=== PATIENT | female | born 1980 | race African-American/Black ===

== ENCOUNTER 2018-07-27 22:18 | Emergency (ER) | payer MEDICAID ==
--- NOTE | 2018-07-27 23:14 | ER Document Report ---
ED General - General Chief Complaint: Toothache Stated Complaint: TOOTH PAIN Time Seen by Provider: 07/27/18 22:41 Mode of Arrival: Ambulatory Information source: Patient TRAVEL OUTSIDE OF THE [place] IN LAST 30 DAYS: No - HPI Patient complains to provider of: Dental pain Onset: Last week Onset/Duration: Gradual Quality of pain: Sharp Severity: Severe Pain Level: 4 Associated symptoms: denies: Chills, Fever Exacerbated by: Other - Eating/chewing Relieved by: Denies Similar symptoms previously: No Recently seen / treated by doctor: No Notes: 38-year-old -German female with toothache in the right lower jaw. Symptoms since last week. Denies fevers and chills. - Related Data Allergies/Adverse Reactions: cigarette smoke Allergy (Verified 07/27/18 22:22) Past Medical History - General Information source: Patient - Social History Smoking Status: Unknown if Ever Smoked Family History: Reviewed & Not Pertinent Patient has suicidal ideation: No Patient has homicidal ideation: No Renal/ Medical History: Denies: Hx Peritoneal Dialysis Review of Systems - Review of Systems Notes: Constitutional: No fevers. No chills. EENT: No eye redness. No eye pain. No ear pain. No sore throat. Positive for dental pain Cardiovascular: No chest pain. No palpitations. Respiratory: No cough. No shortness of breath. No respiratory distress. Gastrointestinal: No abdominal pain. No nausea, vomiting, or diarrhea. Genitourinary: Atraumatic. No lesions. No pain. No discharge. Musculoskeletal: Atraumatic. No swelling. No deformities. Skin: No rash or lesions. Lymphatic: No swollen lymph nodes. Neurologic: No headache. No syncope. Psychiatric: No suicidal or homicidal ideation. Physical Exam - Vital signs Vitals: Temp Pulse Resp BP Pulse Ox 98.2 F 97 16 162/94 H 98 07/27/18 22:30 07/27/18 22:30 07/27/18 22:30 07/27/18 22:30 07/27/18 22:30 - Notes Notes: General: Well-developed, well-nourished. In no acute distress. Non-toxic appearing. Cardiac: Well-perfused. Regular rate and rhythm. No murmurs, rubs, or gallops. Pulmonary: No respiratory distress. No cyanosis. Bilateral lung fiels are clear to auscultation. Abdominal: Non-distended. Non-rigid. Bowels sounds are present in all four quadrants. No guarding or rebound. HEENT: Head is atraumatic. Conjunctivae not reddened. No tearing. PERRL. EOMI. Orbits atraumatic. No periorbital swelling or erythema. Oropharynx is without erythema, swelling, or exudates. There is a large cavity IN tooth #32 anteriorly. Tooth is tender to palpate. No abscess appreciated. No trismus or drooling. No submandibular or sublingual swelling. No dysphonia dyspnea or dysphagia Neck: Supple. No adenopathy. No meningismus. Dermatologic: Warm with good turgor. No rash. Atraumatic. Chest: Atraumatic. No chest wall tenderness to palpation. Musculoskeletal: Moves all extremities well. No range of motion deficits. no muscular or joint tenderness. No paraspinal muscle tenderness. no midline spinal tenderness or step-off. Genitourinary: Examination deferred Neurologic: No gross neurologic deficits. Psychiatric: Normal mood. Course - Vital Signs Vital signs: Temp Pulse Resp BP Pulse Ox 98.2 F 97 16 162/94 H 98 07/27/18 22:30 07/27/18 22:30 07/27/18 22:30 07/27/18 22:30 07/27/18 22:30 Discharge - Discharge Clinical Impression: Dental abscess, Elevated blood pressure reading Condition: Good Disposition: HOME, SELF-CARE Instructions: Cephalexin (REPLACED BY [facility]), [facility], Oral Narcotic Medication (REPLACED BY [facility]), Toothache (REPLACED BY [facility]) Additional Instructions: Please call the dental clinic in the morning to set up an appointment for follow-up. Prescriptions: Tramadol HCl/Acetaminophen [Ultracet 37.5 mg/325 mg Tablet] 1 each PO Q6HP PRN #12 tablet PRN Reason: Amoxicillin 1 tab PO TID #30 tab Referrals: [facility] [Provider Group] - Follow up as needed
[2018-07-27 23:25] VITALS: BP 145/97
[2018-07-28] MEDS ORDERED: IBUPROFEN 800 MG TABLET PO ONE (00:18)
== END 2018-07-27 23:44 | disposition home or self-care (01) ==
LOC: ER 22:18
DX: K04.7 Periapical abscess without sinus (principal); R03.0 Elevated blood-pressure reading, without diagnosis of hypertension
CPT/HCPCS: 99282

== ENCOUNTER 2018-12-04 19:31 | Emergency (ER) | payer SELFPAY ==
[2018-12-04] MEDS ORDERED: ONDANSETRON HCL INJ/PF 4 MG/2 ML SDV IV ONE (20:06)
--- NOTE | 2018-12-04 20:08 | ER Document Report ---
ED Medical Screen (RME) - General Chief Complaint: Abdominal Pain Stated Complaint: STOMACH PAINS Time Seen by Provider: 12/04/18 19:46 Primary Care Provider: [facility],EMPLOYEE [Primary Care Provider] - Follow up as needed Notes: Patient is a 38-year-old morbidly obese female who presents the emergency department with a chief complaint of abdominal pain. Her pain starts in the right upper abdomen, migrates to the middle and radiates down to her lower abdomen. Patient states that her symptoms have been going on and off for the past month. Her last menstrual cycle was on October 23. She has been 7 times and has 5 living children. She is not currently on control. Patient also has history of a cholecystectomy and hernia. Exam: Tenderness noted to right upper abdomen. Exam limited due to patient's obesity and in sitting position. I have greeted and performed a rapid initial assessment of this patient. A comprehensive ED assessment and evaluation of the patient, analysis of test results and completion of medical decision making process will be conducted by an additional ED providers. TRAVEL OUTSIDE OF THE [place] IN LAST 30 DAYS: No - Related Data Allergies/Adverse Reactions: cigarette smoke Allergy (Verified 07/27/18 22:22) Past Medical History Renal/ Medical History: Denies: Hx Peritoneal Dialysis Past Surgical History: Reports: Hx Cholecystectomy Physical Exam - Vital signs Vitals: Temp Pulse Resp BP Pulse Ox 97.9 F 104 H 22 H 139/92 H 97 12/04/18 19:36 12/04/18 19:36 12/04/18 19:36 12/04/18 19:36 12/04/18 19:36 Course - Vital Signs Vital signs: Temp Pulse Resp BP Pulse Ox 97.9 F 104 H 22 H 139/92 H 97 12/04/18 19:36 12/04/18 19:36 12/04/18 19:36 12/04/18 19:36 12/04/18 19:36 Doctor's Discharge - Discharge Referrals: [facility],EMPLOYEE [Primary Care Provider] - Follow up as needed
[2018-12-04] MEDS ORDERED: NORMAL SALINE 1000 ML 1,000 ML IV ONE ×2 (20:09→23:07)
[2018-12-04] MEDS ORDERED: METOCLOPRAMIDE HCL INJ/PF 10 MG/2 ML SDV IV ONE (20:58)
[2018-12-04 20:59] LABS: ABSOLUTE BASOPHILS # (AUTO) 0.1 10^3/uL (0.0-0.2); ABSOLUTE EOSINOPHILS # (AUTO) 0.4 10^3/uL (0.0-0.6); ABSOLUTE LYMPHOCYTES (AUTO) 2.8 10^3/uL (0.5-4.7); ABSOLUTE NEUT (AUTO) 8.1 10^3/uL (1.7-8.2); BASOPHILS % (AUTO) 0.6 % (0-2); EOSINOPHILS % (AUTO) 3.1 % (0-6); HEMATOCRIT 37.5 % (36.0-47.0); LYMPHOCYTES % (AUTO) 22.6 % (13-45); MEAN CORPUSCULAR HEMOGLOBIN 26.1 pg (27.0-33.4); MEAN CORPUSCULAR VOLUME 82 fl (80-97); MONOCYTES % (AUTO) 7.9 % (3-13); PLATELET COUNT 575 10^3/uL (150-450); RED CELL DISTRIBUTION WIDTH 16.3 % (11.5-14.0); SEGMENTED NEUTROPHILS % (AUTO) 65.8 % (42-78); TOTAL CELLS COUNTED % (AUTO) 100 %; WHITE BLOOD COUNT 12.2 10^3/uL (4.0-10.5)
[2018-12-04 21:25] LABS: ALANINE AMINOTRANSFERASE 31 U/L (9-52); ALBUMIN 3.4 g/dL (3.5-5.0); ALKALINE PHOSPHATASE 73 U/L (38-126); ANION GAP 6 (5-19); ASPARTATE AMINO TRANSFERASE 33 U/L (14-36); BILIRUBIN,DIRECT 0.2 mg/dL (0.0-0.4); BILIRUBIN,TOTAL 0.3 mg/dL (0.2-1.3); BLOOD UREA NITROGEN 13 mg/dL (7-20); CALCIUM 8.6 mg/dL (8.4-10.2); CARBON DIOXIDE 30 mmol/L (22-30); CHLORIDE 103 mmol/L (98-107); GLUCOSE 120 mg/dL (75-110); POTASSIUM 4.9 mmol/L (3.6-5.0); TOTAL PROTEIN 6.7 g/dL (6.3-8.2)
--- NOTE | 2018-12-04 22:58 | RADIOLOGY REPORT (SQ) ---
EXAM DESCRIPTION: RadLex: US RETROPERITONEUM LIMITED CLINICAL HISTORY: 38 years Female; back pain TECHNIQUE: Bilateral renal ultrasound was performed. COMPARISON: None. FINDINGS: Right kidney: 9.1 x 4.7 x 5.7 cm. No hydronephrosis or shadowing calculi. Left kidney: 10.2 x 5.1 x 5.6 cm. No hydronephrosis or shadowing calculi. Bladder: Nondistended, 10 mL. IMPRESSION: 1. Normal renal sonogram.
--- NOTE | 2018-12-04 22:59 | RADIOLOGY REPORT (SQ) ---
EXAM DESCRIPTION: US ABDOMEN LIMITED COMPLETED DATE/TME: 12/04/2018 20:08 CLINICAL HISTORY: RUQ abd pain COMPARISON: None. TECHNIQUE: Real-time sonographic images of the right upper abdomen were obtained using a curved multihertz transducer. FINDINGS: Pancreas: The visualized portions of the pancreas are unremarkable. Vascular: The visualized portions of the aorta and IVC are unremarkable. Liver: Hepatomegaly. Normal hepatic echogenicity. Hepatopedal flow in the portal vein. Findings confirmed with color and spectral Doppler imaging. The common bile duct measures 0.4 cm. Gallbladder: Prior cholecystectomy. Right Kidney: The right kidney measures 9.1 cm in length. No hydronephrosis, solid renal mass, or shadowing calculi. IMPRESSION: 1. Prior cholecystectomy. 2. Hepatomegaly.
--- NOTE | 2018-12-05 00:48 | ER Document Report ---
ED GI/ - General Chief Complaint: Abdominal Pain Stated Complaint: STOMACH PAINS Time Seen by Provider: 12/04/18 19:46 Primary Care Provider: HEALTH,EMPLOYEE [ACTIVE STAFF] - Follow up as needed Mode of Arrival: Ambulatory Information source: Patient Notes: Patient is a 38-year-old female presenting to the emergency department with complaints of upper abdominal pain. Patient reports pain has been ongoing for several months. She reports associated nausea with vomiting. She also reports her menstrual cycle has been irregular. She denies any abnormal vaginal bleeding or abnormal vaginal discharge. Patient reports pain is in the upper abdomen. She denies any lower abdominal or pelvic pain or fever. Patient thinks is possible she may be . She states she took a test at home last week but states that other pregnancies that she has had have not shown up on urine test but she has needed blood work. TRAVEL OUTSIDE OF THE [place] IN LAST 30 DAYS: No - Related Data Allergies/Adverse Reactions: cigarette smoke Allergy (Verified 07/27/18 22:22) Past Medical History - General Information source: Patient - Social History Smoking Status: Never Smoker Frequency of alcohol use: None Drug Abuse: None Family History: Reviewed & Not Pertinent Patient has suicidal ideation: No Patient has homicidal ideation: No - Medical History Medical History: Negative Renal/ Medical History: Denies: Hx Peritoneal Dialysis Past Surgical History: Reports: Hx Cholecystectomy - Immunizations Immunizations up to date: Yes Review of Systems - Review of Systems Constitutional: No symptoms reported EENT: No symptoms reported Cardiovascular: No symptoms reported Respiratory: No symptoms reported Gastrointestinal: Abdominal pain, Nausea, Vomiting Genitourinary: No symptoms reported Female Genitourinary: No symptoms reported Musculoskeletal: No symptoms reported Skin: No symptoms reported Hematologic/Lymphatic: No symptoms reported Neurological/Psychological: No symptoms reported Physical Exam - Vital signs Vitals: Temp Pulse Resp BP Pulse Ox 97.9 F 104 H 22 H 139/92 H 97 12/04/18 19:36 12/04/18 19:36 12/04/18 19:36 12/04/18 19:36 12/04/18 19:36 - Notes Notes: PHYSICAL EXAMINATION: GENERAL: Morbidly obese female. HEAD: Atraumatic, normocephalic. EYES: Pupils equal round and reactive to light, extraocular movements intact, conjunctiva are normal. ENT: Nares patent, oropharynx clear without exudates. Moist mucous membranes. NECK: Normal range of motion, supple without lymphadenopathy LUNGS: Breath sounds clear to auscultation bilaterally and equal. No wheezes rales or rhonchi. HEART: Regular rate and rhythm without murmurs ABDOMEN: Soft, large, round, nondistended abdomen. No guarding, no rebound. No masses appreciated. Female : deferred Musculoskeletal: Normal range of motion, no pitting or edema. No cyanosis. NEUROLOGICAL: Cranial nerves grossly intact. Normal speech, normal gait. Normal sensory, motor exams PSYCH: Normal mood, normal affect. SKIN: Warm, Dry, normal turgor, no rashes or lesions noted. Course - Re-evaluation Re-evalutation: Laboratory 12/04/18 12/04/18 12/04/18 20:39 20:39 20:39 WBC 12.2 H RBC 4.60 Hgb 12.0 Hct 37.5 MCV 82 MCH 26.1 L MCHC 32.0 RDW 16.3 H Plt Count 575 H Seg Neutrophils % 65.8 Lymphocytes % 22.6 Monocytes % 7.9 Eosinophils % 3.1 Basophils % 0.6 Absolute Neutrophils 8.1 Absolute Lymphocytes 2.8 Absolute Monocytes 1.0 Absolute Eosinophils 0.4 Absolute Basophils 0.1 Sodium 139.1 Potassium 4.9 Chloride 103 Carbon Dioxide 30 Anion Gap 6 BUN 13 Creatinine 1.07 Est GFR ( Amer) > 60 Est GFR (Non-Af Amer) 57 L Glucose 120 H Calcium 8.6 Total Bilirubin 0.3 Direct Bilirubin 0.2 Neonat Total Bilirubin Not Reportable Neonat Direct Bilirubin Not Reportable Neonat Indirect Bili Not Reportable AST 33 ALT 31 Alkaline Phosphatase 73 Total Protein 6.7 Albumin 3.4 L Serum HCG, Qual NEGATIVE Urine Color Urine Appearance Urine pH Ur Specific Phillips Urine Protein Urine Glucose (UA) Urine Ketones Urine Blood Urine Nitrite Urine Bilirubin Urine Urobilinogen Ur Leukocyte Esterase Urine WBC (Auto) Urine RBC (Auto) Squamous Epi Cells Auto U Non-Squamous Epis Auto Urine Mucus (Auto) Urine Ascorbic Acid 12/05/18 01:17 WBC RBC Hgb Hct MCV MCH MCHC RDW Plt Count Seg Neutrophils % Lymphocytes % Monocytes % Eosinophils % Basophils % Absolute Neutrophils Absolute Lymphocytes Absolute Monocytes Absolute Eosinophils Absolute Basophils Sodium Potassium Chloride Carbon Dioxide Anion Gap BUN Creatinine Est GFR ( Amer) Est GFR (Non-Af Amer) Glucose Calcium Total Bilirubin Direct Bilirubin Neonat Total Bilirubin Neonat Direct Bilirubin Neonat Indirect Bili AST ALT Alkaline Phosphatase Total Protein Albumin Serum HCG, Qual Urine Color YELLOW Urine Appearance CLOUDY Urine pH 6.0 Ur Specific Phillips 1.017 Urine Protein NEGATIVE Urine Glucose (UA) NEGATIVE Urine Ketones NEGATIVE Urine Blood NEGATIVE Urine Nitrite NEGATIVE Urine Bilirubin NEGATIVE Urine Urobilinogen NEGATIVE Ur Leukocyte Esterase NEGATIVE Urine WBC (Auto) 75 Urine RBC (Auto) >182 Squamous Epi Cells Auto 7 U Non-Squamous Epis Auto 4 Urine Mucus (Auto) RARE Urine Ascorbic Acid NEGATIVE Abdomen Ultrasound 12/04/18 20:08 IMPRESSION: 1. Prior cholecystectomy. 2. Hepatomegaly. Renal Ultrasound 12/04/18 20:08 IMPRESSION: 1. Normal renal sonogram. - Vital Signs Vital signs: Temp Pulse Resp BP Pulse Ox 98.0 F 84 16 137/92 H 97 12/05/18 02:57 12/05/18 02:57 12/05/18 02:57 12/05/18 02:57 12/05/18 02:57 - Laboratory Result Diagrams: 12/04/18 20:39 12/04/18 20:39 Laboratory results interpreted by me: 12/04/18 12/04/18 20:39 20:39 WBC 12.2 H MCH 26.1 L RDW 16.3 H Plt Count 575 H Est GFR (Non-Af Amer) 57 L Glucose 120 H Albumin 3.4 L Discharge - Discharge Clinical Impression: Abdominal pain Qualifiers: Abdominal location: upper abdomen, unspecified Qualified Code(s): R10.10 - Upper abdominal pain, unspecified Nausea and vomiting Qualifiers: Vomiting type: unspecified Vomiting Intractability: unspecified Qualified Code(s): R11.2 - Nausea with vomiting, unspecified Condition: Stable Disposition: HOME, SELF-CARE Additional Instructions: Your symptoms appear to be most consistent with stomach or upper intestinal irritation. Please begin taking famotidine 40 mg in the morning and 40 mg at night. Take the Carafate as prescribed. This medicine can be purchased directly [id number]. You may also take medicine such as Pepto-Bismol or Tums to assist with your pain. Please return to emergency department immediately if you have worsening of your pain, shortness of breath, vomiting, become unable to exert yourself due to pain or difficulty breathing, you pass out, or have any pain that radiates into your arms, jaw, or back. Please also return if you have any additional symptoms that are concerning to you. You need to avoid smoking, sodas, tea, coffee, alcohol, spicy foods, and acidic foods such as citrus fruits, tomato based products, berries, and most fruit juices. Please follow up with your doctor as soon as possible regarding today's emergent visit and the symptoms that are bothering you. Return to the ED if your abdominal pain worsens or fails to improve, you develop bloody vomiting, bloody diarrhea, you are unable to tolerate fluids due to vomiting, fever greater than 101, or other symptoms that concern you. Prescriptions: Famotidine 40 mg PO BID #60 tablet Ondansetron [Zofran Odt 4 mg Tablet] 1 - 2 tab PO Q4H PRN #15 tab.rapdis PRN Reason: For Nausea/Vomiting Sucralfate [Carafate 1 gm Tablet] 1 gm PO ACHS #60 tablet Referrals: HEALTH,EMPLOYEE [ACTIVE STAFF] - Follow up as needed
[2018-12-05 01:39] LABS: APPEARANCE,URINE CLOUDY; BILIRUBIN,URINE NEGATIVE (NEGATIVE); COLOR,URINE YELLOW; GLUCOSE, URINE NEGATIVE (NEGATIVE); KETONES,URINE NEGATIVE (NEGATIVE); LEUKOCYTE ESTERASE,URINE NEGATIVE (NEGATIVE); NITRITE,URINE NEGATIVE (NEGATIVE); PROTEIN,URINE NEGATIVE (NEGATIVE); URINE SPECIFIC GRAVITY 1.017; UROBILINOGEN,URINE NEGATIVE mg/dL (<2.0)
[2018-12-05] MEDS ORDERED: HYDROCODONE/ACETAMINOPHEN 5-325 MG (6 TAB/ER DISP) PO PRN (02:13)
[2018-12-05] MEDS ORDERED: ONDANSETRON ODT 4 MG TAB (6 TAB/ER DISP) PO PRN (02:13)
[2018-12-05 03:16] VITALS: BP 137/92
== END 2018-12-05 02:59 | disposition home or self-care (01) ==
LOC: ER 19:31
DX: R10.10 Upper abdominal pain, unspecified (principal); R11.2 Nausea with vomiting, unspecified; N92.6 Irregular menstruation, unspecified; E66.01 Morbid (severe) obesity due to excess calories; R16.0 Hepatomegaly, not elsewhere classified; Z91.048 Other nonmedicinal substance allergy status; Z90.49 Acquired absence of other specified parts of digestive tract
CPT/HCPCS: 99284; 96361; 96374; 36415; 84703; 85025; 80053; 81001; 76775; 76705; J2765; J7030

== ENCOUNTER 2019-03-10 21:52 | Emergency (ER) | payer SELFPAY ==
[2019-03-11] MEDS ORDERED: PENICILLIN V POTASSIUM 500 MG TABLET PO ONE (04:58)
[2019-03-11] MEDS ORDERED: LIDOCAINE 2% VISCOUS SOLN 20 ML UDCUP PO ONE (04:58)
[2019-03-11] MEDS ORDERED: HYDROCODONE/ACETAMINOPHEN 5-325 MG (6 TAB/ER DISP) PO PRN (04:58)
--- NOTE | 2019-03-11 05:03 | ER Document Report ---
HPI - HPI Time Seen by Provider: 03/11/19 04:03 Pain Level: 5 Notes: Patient presents to the emergency department chief complaint of dental pain. Patient reports pain has been ongoing for approximately 2 days. She denies any fevers or drainage from the area. - REPRODUCTIVE LMP: 02/12/19 Reproductive: DENIES: : Past Medical History - General Information source: Patient - Social History Smoking Status: Never Smoker Chew tobacco use (# tins/day): No Frequency of alcohol use: None Drug Abuse: None Family History: Reviewed & Not Pertinent Patient has suicidal ideation: No Patient has homicidal ideation: No - Medical History Medical History: Negative Renal/ Medical History: Denies: Hx Peritoneal Dialysis Past Surgical History: Reports: Hx Cholecystectomy - Immunizations Immunizations up to date: Yes Vertical Provider Document - CONSTITUTIONAL Notes: PHYSICAL EXAMINATION: GENERAL: Well-appearing, well-nourished and in no acute distress. HEAD: Atraumatic, normocephalic. EYES: Pupils equal round extraocular movements intact, conjunctiva are normal. ENT: Nares patent, dental caries noted at tooth #30. No drainable abscess identified. NECK: Normal range of motion LUNGS: No respiratory distress Musculoskeletal: Normal range of motion NEUROLOGICAL: Normal speech, normal gait. PSYCH: Normal mood, normal affect. SKIN: Warm, Dry, normal turgor, no rashes or lesions noted. - INFECTION CONTROL TRAVEL OUTSIDE OF THE [place] IN LAST 30 DAYS: No Course - Re-evaluation Re-evalutation: Presentation is most consistent with likely an infected tooth. Airway is patent. Vitals within normal limits. Patient is able swallow without any difficulty. There is no significant facial swelling. No evidence of Zay angina, apical abscess, or airway obstruction. Patient will be started on antibiotics. I've instructed to follow-up with dentistry as earliest ability for definitive management. At this time will discharge with return precautions and follow-up recommendations. Verbal discharge instructions given a the bed side and opportunity for questions given. Medication warnings reviewed. Patient is in agreement with this plan and has verbalized understanding of return precautions and the need for primary care follow-up in the next 24-72 hours. - Vital Signs Vital signs: Temp Pulse Resp BP Pulse Ox 97.5 F 83 17 141/83 H 98 03/11/19 02:10 03/11/19 02:10 03/11/19 02:10 03/11/19 02:10 03/11/19 02:10 Discharge - Discharge Clinical Impression: Pain, dental Condition: Stable Disposition: HOME, SELF-CARE Additional Instructions: You have been seen for dental pain. It is very important that you follow-up with a dentist for definitive care. Please return if you develop fever greater than 101, swelling in your face, vomiting, difficulty breathing or swallowing, or any other symptoms that are concerning to you. For pain you should take ibuprofen 800 mg every 8 hours as needed. Take medications as prescribed. [facility] as described. Prescriptions: Penicillin V Potassium [Penicillin Vk 500 mg Tablet] 500 mg PO BID #20 tablet Forms: Return to School
[2019-03-11 05:10] VITALS: BP 140/95
== END 2019-03-11 05:16 | disposition home or self-care (01) ==
LOC: ER 21:52
DX: K08.89 Other specified disorders of teeth and supporting structures (principal)
CPT/HCPCS: 99282; J3490

== ENCOUNTER 2019-06-01 21:38 | Emergency (ER) | payer SELFPAY ==
--- NOTE | 2019-06-01 22:22 | ER Document Report ---
ED Medical Screen (RME) - General Stated Complaint: VAGINAL DISCOMFORT AND PAIN Time Seen by Provider: 06/01/19 22:17 Notes: HPI: 38-year-old morbidly obese female presenting to the emergency department for evaluation of vaginal pain and itching and burning over the last 3 weeks. Patient states that the discomfort encompasses the entire vagina is not unilateral. She has noticed a discharge. Patient states that initially she thought it might be a yeast infection and did try an [id number] antifungal cream which seemed to help the symptoms for 1 to 2 days then they reoccurred and worsened. Patient states she has significant discomfort even to touch the v aginal area now. Has not had fever. Does report slight burning with urination. Patient denies any sexual activity for the last 5 to 6 months and denies I have greeted and performed a rapid initial assessment of this patient. A comprehensive ED assessment and evaluation of the patient, analysis of test results and completion of the medical decision making process will be conducted by additional ED providers PHYSICAL EXAMINATION: GENERAL: Well-appearing, well-nourished and in mild acute distress. HEAD: Atraumatic, normocephalic. EYES: sclera anicteric, conjunctiva are normal. ENT: Moist mucous membranes. NECK: Normal range of motion LUNGS: Normal work of breathing HEART: 2+ radial pulses bilaterally ABD: limited by positioning for exam in triage. Morbidly obese : Deferred in triage EXTREMITIES: no pitting or edema. No cyanosis. NEUROLOGICAL: No focal neurological deficits. Moves all extremities spontaneously and on command. PSYCH: Normal mood, normal affect. SKIN: Warm, Dry, normal turgor TRAVEL OUTSIDE OF THE [place] IN LAST 30 DAYS: No - Related Data Allergies/Adverse Reactions: cigarette smoke Allergy (Verified 06/01/19 22:16) Past Medical History Renal/ Medical History: Denies: Hx Peritoneal Dialysis Past Surgical History: Reports: Hx Cholecystectomy - Immunizations Immunizations up to date: Yes Physical Exam - Vital signs Vitals: Temp Pulse Resp BP Pulse Ox 97.5 F 93 22 H 148/84 H 96 06/01/19 21:44 06/01/19 21:44 06/01/19 21:44 06/01/19 21:44 06/01/19 21:44 Course - Vital Signs Vital signs: Temp Pulse Resp BP Pulse Ox 97.5 F 93 22 H 148/84 H 96 06/01/19 21:44 06/01/19 21:44 06/01/19 21:44 06/01/19 21:44 06/01/19 21:44
[2019-06-02] MEDS ORDERED: ACETAMINOPHEN 325 MG TABLET PO ONE (01:02)
[2019-06-02 01:08] LABS: ABSOLUTE BASOPHILS # (AUTO) 0.1 10^3/uL (0.0-0.2); ABSOLUTE EOSINOPHILS # (AUTO) 0.5 10^3/uL (0.0-0.6); ABSOLUTE LYMPHOCYTES (AUTO) 2.9 10^3/uL (0.5-4.7); ABSOLUTE MONOCYTES (AUTO) 0.7 10^3/uL (0.1-1.4); ABSOLUTE NEUT (AUTO) 7.2 10^3/uL (1.7-8.2); BASOPHILS % (AUTO) 0.5 % (0-2); HEMATOCRIT 39.2 % (36.0-47.0); HEMOGLOBIN 12.6 g/dL (12.0-15.5); LYMPHOCYTES % (AUTO) 25.6 % (13-45); MEAN CORPUSCULAR HEMOGLOBIN 27.1 pg (27.0-33.4); MEAN CORPUSCULAR VOLUME 85 fl (80-97); MONOCYTES % (AUTO) 6.3 % (3-13); PLATELET COUNT 536 10^3/uL (150-450); RED BLOOD COUNT 4.64 10^6/uL (3.72-5.28); RED CELL DISTRIBUTION WIDTH 15.6 % (11.5-14.0); SEGMENTED NEUTROPHILS % (AUTO) 63.6 % (42-78); TOTAL CELLS COUNTED % (AUTO) 100 %; WHITE BLOOD COUNT 11.3 10^3/uL (4.0-10.5)
[2019-06-02 01:20] LABS: ALBUMIN 3.2 g/dL (3.5-5.0); ALKALINE PHOSPHATASE 96 U/L (38-126); ASPARTATE AMINO TRANSFERASE 29 U/L (14-36); BILIRUBIN,TOTAL 0.3 mg/dL (0.2-1.3); BLOOD UREA NITROGEN 12 mg/dL (7-20); CALCIUM 8.6 mg/dL (8.4-10.2); CHLORIDE 102 mmol/L (98-107); GLUCOSE 256 mg/dL (75-110); POTASSIUM 4.4 mmol/L (3.6-5.0); TOTAL PROTEIN 6.4 g/dL (6.3-8.2)
[2019-06-02 01:29] LABS: ANION GAP 7 (5-19); CARBON DIOXIDE 30 mmol/L (22-30)
[2019-06-02] MEDS ORDERED: NYSTATIN CREAM 15 GM TP ONE (01:46)
--- NOTE | 2019-06-02 01:59 | ER Document Report ---
ED General - General Chief Complaint: Vaginal Itching Stated Complaint: VAGINAL DISCOMFORT AND PAIN Time Seen by Provider: 06/01/19 22:17 Mode of Arrival: Ambulatory Information source: Patient TRAVEL OUTSIDE OF THE U.S[place] IN LAST 30 DAYS: No - HPI Notes: Patient presents with vaginal pain and itching. She states this is been going on for several weeks. She states she has tried [id number] medications with no relief. She states she does not have a doctor and cannot afford insurance at this point either. She states she does not have any known medical problems that she knows of. She states she has not been sexually active in 5 to 6 months. She states that it hurts when she urinates or wipes after urination or bowel movements. This pain has been moderate to severe. It is constant. It is worse when touched and better if left alone. It does radiate throughout her inguinal perineum rectal and vaginal areas. - Related Data Allergies/Adverse Reactions: cigarette smoke Allergy (Verified 06/01/19 22:16) Past Medical History - General Information source: Patient Last Menstrual Period: "last month around this time" - Social History Smoking Status: Never Smoker Frequency of alcohol use: None Drug Abuse: None Family History: Reviewed & Not Pertinent Patient has suicidal ideation: No Patient has homicidal ideation: No Renal/ Medical History: Denies: Hx Peritoneal Dialysis Past Surgical History: Reports: Hx Cholecystectomy - Immunizations Immunizations up to date: Yes Review of Systems - Review of Systems Constitutional: denies: Chills, Fever Cardiovascular: denies: Chest pain, Palpitations Respiratory: denies: Cough, Short of breath -: Yes All other systems reviewed and negative Physical Exam - Vital signs Vitals: Temp Pulse Resp BP Pulse Ox 97.5 F 93 22 H 148/84 H 96 06/01/19 21:44 06/01/19 21:44 06/01/19 21:44 06/01/19 21:44 06/01/19 21:44 Interpretation: Normal - General General appearance: Appears well, Alert - HEENT Head: Normocephalic, Atraumatic Eyes: Normal Pupils: PERRL - Respiratory Respiratory status: No respiratory distress Chest status: Nontender Breath sounds: Normal Chest palpation: Normal - Cardiovascular Rhythm: Regular Heart sounds: Normal auscultation Murmur: No - Abdominal Inspection: Normal Distension: No distension Bowel sounds: Normal Tenderness: Nontender Organomegaly: No organomegaly - Genitourinary External exam: Other - Patient's external genitalia including labia majora, perineum and skin folds have diffuse moisture, erythema, and tenderness. Exam is consistent with diffuse intertrigo. - Back Back: Normal, Nontender - Extremities General upper extremity: Normal inspection, Nontender, Normal color, Normal ROM, Normal temperature General lower extremity: Normal inspection, Nontender, Normal color, Normal ROM, Normal temperature, Normal weight bearing. No: Raghu's sign - Neurological Neuro grossly intact: Yes Cognition: Normal Orientation: AAOx4 [place] Coma Scale Eye Opening: Spontaneous Curt Coma Scale Verbal: Oriented Curt Coma Scale Motor: Obeys Commands Curt Coma Scale Total: 15 Speech: Normal Motor strength normal: LUE, RUE, LLE, RLE Sensory: Normal - Psychological Associated symptoms: Normal affect, Normal mood - Skin Skin Temperature: Warm Skin Moisture: Moist - In the areas of intertrigo otherwise dry Skin Color: Other - Please see above note Course - Re-evaluation Re-evalutation: 06/02/19 01:55 Patient presents with diffuse vaginal itching burning and pain. Her exam is consistent with intertrigo. She will be treated with nystatin. Patient also has an elevated blood sugar consistent with new onset diabetes. She has no primary care physician to follow-up with. She will be referred to the [facility]. She has had a social work consult placed for morning. She will also be started on metformin. - Vital Signs Vital signs: Temp Pulse Resp BP Pulse Ox 97.5 F 93 22 H 148/84 H 96 06/01/19 21:44 06/01/19 21:44 06/01/19 21:44 06/01/19 21:44 06/01/19 21:44 - Laboratory Result Diagrams: 06/02/19 00:59 06/02/19 00:59 Laboratory results interpreted by me: 06/01/19 06/02/19 06/02/19 22:58 00:59 00:59 WBC 11.3 H RDW 15.6 H Plt Count 536 H Glucose 256 H POC Glucose 322 H Albumin 3.2 L Discharge - Discharge Clinical Impression: Intertrigo, New onset type 2 diabetes mellitus Condition: Stable Disposition: HOME, SELF-CARE Instructions: Vaginal Yeast Infection ([facility]), Diabetes ([facility]) Additional Instructions: Please call the [facility] as soon as possible to arrange follow-up. Also please expect a phone call from social work here at [facility] to assist you with your care. Please take your medications as prescribed. Please keep the area is warm and dry as much as possible. Prescriptions: Metformin HCl [Glucophage 500 mg Tablet] 500 mg PO BID #60 tablet Nystatin [Mycostatin Cream 15 gm] 15 applic TP BID 30 Days #15 tube Forms: Return to Work Referrals: [facility] [Provider Group] - Follow up tomorrow
[2019-06-02 02:00] LABS: T.VAGINALIS (WET MOUNT) NO TRICHOMONAS SEEN
[2019-06-02 02:01] LABS: BACTERIA (WET MOUNT) 3+ BACTERIA SEEN; RBCS (WET MOUNT) RARE RBCS SEEN; WBCS (WET MOUNT) 2+ WBCS SEEN; YEAST (WET MOUNT) YEAST SEEN
[2019-06-02 02:39] LABS: APPEARANCE,URINE CLEAR; BILIRUBIN,URINE NEGATIVE (NEGATIVE); COLOR,URINE YELLOW; GLUCOSE, URINE >=500 mg/dL (NEGATIVE); KETONES,URINE NEGATIVE (NEGATIVE); LEUKOCYTE ESTERASE,URINE TRACE (NEGATIVE); NITRITE,URINE NEGATIVE (NEGATIVE); PROTEIN,URINE NEGATIVE (NEGATIVE); URINE SPECIFIC GRAVITY 1.032; UROBILINOGEN,URINE NEGATIVE mg/dL (<2.0)
[2019-06-02 03:08] VITALS: BP 142/99
[2019-06-02 03:24] LABS: CHLAM PCR NOT DETECTED (NOT DETECT)
== END 2019-06-02 03:05 | disposition home or self-care (01) ==
LOC: ER 21:38
DX: L30.4 Erythema intertrigo (principal); E11.65 Type 2 diabetes mellitus with hyperglycemia; Z91.048 Other nonmedicinal substance allergy status
CPT/HCPCS: 99283; 36415; 87210; 82010; 82962; 85025; 81025; 80053; 81001; 87491; 87591; J3490

== ENCOUNTER → 2019-09-06 | Outpatient (CLI) | payer OTHER ==
[2019-09-06 16:18] LABS: ABSOLUTE BASOPHILS # (AUTO) 0.1 10^3/uL (0.0-0.2); ABSOLUTE EOSINOPHILS # (AUTO) 0.5 10^3/uL (0.0-0.6); ABSOLUTE LYMPHOCYTES (AUTO) 2.4 10^3/uL (0.5-4.7); ABSOLUTE MONOCYTES (AUTO) 0.6 10^3/uL (0.1-1.4); ABSOLUTE NEUT (AUTO) 7.3 10^3/uL (1.7-8.2); BASOPHILS % (AUTO) 0.7 % (0-2); EOSINOPHILS % (AUTO) 4.4 % (0-6); HEMATOCRIT 40.8 % (36.0-47.0); HEMOGLOBIN 13.4 g/dL (12.0-15.5); LYMPHOCYTES % (AUTO) 22.1 % (13-45); MEAN CORPUSCULAR HEMOGLOBIN 27.8 pg (27.0-33.4); MEAN CORPUSCULAR HGB CONC 32.8 g/dL (32.0-36.0); MEAN CORPUSCULAR VOLUME 85 fl (80-97); MONOCYTES % (AUTO) 5.8 % (3-13); PLATELET COUNT 498 10^3/uL (150-450); RED BLOOD COUNT 4.82 10^6/uL (3.72-5.28); RED CELL DISTRIBUTION WIDTH 15.1 % (11.5-14.0); TOTAL CELLS COUNTED % (AUTO) 100 %; WHITE BLOOD COUNT 10.8 10^3/uL (4.0-10.5)
[2019-09-06 16:38] LABS: ALBUMIN 3.5 g/dL (3.5-5.0); ALKALINE PHOSPHATASE 102 U/L (38-126); ANION GAP 7 (5-19); ASPARTATE AMINO TRANSFERASE 30 U/L (14-36); BILIRUBIN,TOTAL 0.4 mg/dL (0.2-1.3); BLOOD UREA NITROGEN 11 mg/dL (7-20); CALCIUM 8.8 mg/dL (8.4-10.2); CARBON DIOXIDE 28 mmol/L (22-30); CHLORIDE 102 mmol/L (98-107); CHOLESTEROL 148.96 mg/dL (0-200); GLUCOSE 375 mg/dL (75-110); POTASSIUM 4.5 mmol/L (3.6-5.0); TRIGLYCERIDES 168 mg/dL (<150)
[2019-09-06 16:49] LABS: DIRECT LDL 107 mg/dL (<100)
[2019-09-06 17:14] LABS: VLDL CHOLESTEROL 33.6 mg/dL (10-31)
[2019-09-06 18:06] LABS: APPEARANCE,URINE CLEAR; BILIRUBIN,URINE NEGATIVE (NEGATIVE); COLOR,URINE YELLOW; GLUCOSE, URINE >=500 mg/dL (NEGATIVE); KETONES,URINE TRACE mg/dL (NEGATIVE); LEUKOCYTE ESTERASE,URINE NEGATIVE (NEGATIVE); NITRITE,URINE NEGATIVE (NEGATIVE); PROTEIN,URINE NEGATIVE (NEGATIVE); URINE SPECIFIC GRAVITY 1.035; UROBILINOGEN,URINE NEGATIVE mg/dL (<2.0)
== END ==
LOC: CCC 15:18
PROVIDERS: ATTEND Family Medicine
DX: E11.9 Type 2 diabetes mellitus without complications (principal)
CPT/HCPCS: 36415; 80053; 80061; 81001; 82728; 83036; 84443; 85025

== ENCOUNTER 2019-09-13 21:14 | Emergency (ER) | payer SELFPAY ==
--- NOTE | 2019-09-13 21:34 | ER Document Report ---
ED Medical Screen (RME) - General Stated Complaint: POSS RUPTURED ABCESS Time Seen by Provider: 09/13/19 21:29 Primary Care Provider: J[facility]ANNY BRYAN [Primary Care Provider] - Follow up as needed Mode of Arrival: Wheelchair Notes: This 39-year-old morbidly obese female presents with complaints of vaginal abscess. She reports she has had it for The last couple months. She reports is coming gone. She reports is gone from one side of her labia to the other. She reports this evening her vaginal area was really swollen and possibly ruptured. She reports she had a large amount of blood when she wiped with increased pain. She denies fever vomiting diarrhea. Denies . Denies COVID exposure. I have greeted and performed a rapid initial assessment of this patient. A comprehensive ED assessment and evaluation of the patient, analysis of test results and completion of the medical decision making process will be conducted by additional ED providers. TRAVEL OUTSIDE OF THE U.S. IN LAST 30 DAYS: No - Related Data Allergies/Adverse Reactions: cigarette smoke Allergy (Verified 06/01/19 22:16) Past Medical History Renal/ Medical History: Denies: Hx Peritoneal Dialysis Past Surgical History: Reports: Hx Cholecystectomy - Immunizations Immunizations up to date: Yes Doctor's Discharge - Discharge [facility] - Follow up as needed
[2019-09-13] MEDS ORDERED: ACETAMINOPHEN 325 MG TABLET PO ONE (21:38)
--- NOTE | 2019-09-13 22:05 | ER Document Report ---
ED General - General Chief Complaint: Abscess Stated Complaint: POSS RUPTURED ABCESS Time Seen by Provider: 09/13/19 21:29 Primary Care Provider: [facility] [Primary Care Provider] - Follow up as needed Mode of Arrival: Wheelchair Notes: triage note Pt reports having a painful abscess to vaginal region. Reports they have been coming and going x2 months that possibly ruptured tonight. States she had some bloody drainage on a tissue that was placed on abscess [employer] REPRESENTATIVE to ED. pats note This 39-year-old morbidly obese female presents with complaints of vaginal abscess. She reports she has had it for The last couple months. She reports is coming gone. She reports is gone from one side of her labia to the other. She reports this evening her vaginal area was really swollen and possibly ruptured. She reports she had a large amount of blood when she wiped with increased pain. She denies fever vomiting diarrhea. Denies . Denies COVID exposure. my note 39-year-old black female arrives with chief complaint of having a suprapubic abscess for least 6 to 8 weeks and she has been applying icy hot warm compresses ice compresses liniments. She went to go donate blood from her right arm today and had a pad over this area when she felt it rupture. She also felt pain in the area and drove here. The patient was examined with Brynn MITCHELL at 2200. Patient was in mild distress from pain from the abscess. Patient reports she has been seeing the [facility] and advised the health department about her abscess but they told her that her particular problem has to be seen by physicians. TRAVEL OUTSIDE OF THE [place]. IN LAST 30 DAYS: No - Related Data Allergies/Adverse Reactions: cigarette smoke Allergy (Verified 06/01/19 22:16) Home Medications: metformin Past Medical History - General Information source: Patient - Social History Smoking Status: Never Smoker Cigarette use (# per day): No Chew tobacco use (# tins/day): No Smoking Education Provided: No Frequency of alcohol use: None Drug Abuse: None Lives with: Family Family History: Reviewed & Not Pertinent Patient has homicidal ideation: No Renal/ Medical History: Denies: Hx Peritoneal Dialysis Past Surgical History: Reports: Hx Cholecystectomy - Immunizations Immunizations up to date: Yes Review of Systems - Review of Systems Constitutional: No symptoms reported EENT: No symptoms reported Cardiovascular: No symptoms reported Respiratory: No symptoms reported Gastrointestinal: See HPI, Abdominal pain Genitourinary: No symptoms reported Female Genitourinary: No symptoms reported Musculoskeletal: No symptoms reported Skin: See HPI, Other - Suprapubic abscess approximately 5 cm diameter and tender to touch on the left with abscess rupture draining bloody serosanguineous material Hematologic/Lymphatic: No symptoms reported Neurological/Psychological: No symptoms reported Physical Exam - Vital signs Vitals: Temp 97.9 F 09/13/19 21:29 Interpretation: Normal - General General appearance: Appears well - HEENT Head: Normocephalic, Atraumatic Eyes: Normal Pupils: PERRL Pharynx: Normal Neck: Normal - Respiratory Respiratory status: No respiratory distress - On Chest status: Nontender Breath sounds: Normal Chest palpation: Normal - Genitourinary External exam: Other - Suprapubic abscess approximately 5 cm diameter and tender to touch on the left with abscess rupture draining bloody serosanguineous material Vaginal bleeding: None - Patient was examined with Brynn RN - Back Back: Normal - Extremities General upper extremity: Normal inspection General lower extremity: Normal inspection - Neurological Neuro grossly intact: Yes Cognition: Normal Orientation: AAOx4 [place] Coma Scale Eye Opening: Spontaneous Curt Coma Scale Verbal: Oriented [place] Coma Scale Motor: Obeys Commands [place] Coma Scale Total: 15 Speech: Normal Motor strength normal: LUE, RUE, LLE, RLE Sensory: Normal - Psychological Associated symptoms: Anxious - Skin Skin Temperature: Warm Skin Moisture: Dry Skin Color: Other - Abscess along the suprapubic mons area with ruptured abscess on left as per HPI Course - Vital Signs Vital signs: Temp Pulse Resp BP Pulse Ox 97.9 F 96 18 132/86 H 97 09/13/19 21:36 09/13/19 21:36 09/13/19 21:36 09/13/19 21:36 09/13/19 21:36 Critical Care Note - Critical Care Note Total time excluding time spent on procedures (mins): 60 Comments: Patient was given gentamicin 80 IM and Rocephin 1 g IM and [place] to go Discharge - Discharge Clinical Impression: Suprapubic abscess Condition: Good Disposition: HOME, SELF-CARE Instructions: Trimethoprim-Sulfa ([facility]), Cephalexin ([facility]), Oral Narcotic Medication ([facility]) Additional Instructions: Follow-up with personal doctor this week return to ER symptoms persist apply wet-to-dry compresses 5 times a day with Epsom salt solution; mix 1 teaspoon of Epsom salt and 2 pints of hot water and allow this to cool to room temperature before applying wet compresses with a wash rag to affected area. Alternately may use Hibiclens soap to be applied x5 minutes then rinse off with cool water and pat dry thoroughly. And take medicines as directed Prescriptions: Sulfamethoxazole/Trimethoprim [Bactrim Ds Tablet] 1 tab PO BID 7 Days #14 tablet Cephalexin Monohydrate [Keflex 500 mg Capsule] 500 mg PO BID 5 Days #20 capsule Forms: Return to Work [facility] [[facility]] - Follow up as needed
[2019-09-13 22:24] LABS: APPEARANCE,URINE SLIGHTLY-CLOUDY; BILIRUBIN,URINE NEGATIVE (NEGATIVE); COLOR,URINE YELLOW; GLUCOSE, URINE >=500 mg/dL (NEGATIVE); KETONES,URINE TRACE mg/dL (NEGATIVE); LEUKOCYTE ESTERASE,URINE LARGE (NEGATIVE); NITRITE,URINE NEGATIVE (NEGATIVE); PROTEIN,URINE NEGATIVE (NEGATIVE); URINE SPECIFIC GRAVITY 1.033; UROBILINOGEN,URINE NEGATIVE mg/dL (<2.0)
[2019-09-13] MEDS ORDERED: HYDROCODONE/ACETAMINOPHEN 5-325 MG (6 TAB/ER DISP) PO PRN (22:26)
[2019-09-13] MEDS ORDERED: CEFTRIAXONE INJ 1000 MG VIAL IM ONE (22:26)
[2019-09-13] MEDS ORDERED: LIDOCAINE 1% INJ-PF (10 MG/ML) 30 ML SDV ONE (22:33)
[2019-09-13] MEDS ORDERED: GENTAMICIN SULFATE INJ 80 MG/2 ML VIAL IM ONE (22:40)
[2019-09-13 22:54] VITALS: BP 130/80
[2019-09-14] MEDS ORDERED: GENTAMICIN SULFATE INJ 80 MG/2 ML VIAL IM ONE (22:25)
== END 2019-09-13 22:52 | disposition home or self-care (01) ==
LOC: ER 21:14
DX: L02.215 Cutaneous abscess of perineum (principal); E66.01 Morbid (severe) obesity due to excess calories; Z79.84 Long term (current) use of oral hypoglycemic drugs; Z91.048 Other nonmedicinal substance allergy status
CPT/HCPCS: 99284; 96372; 81025; 81001; J1580; J3490; J0696

== ENCOUNTER 2019-10-26 16:36 | Emergency (ER) | payer SELFPAY ==
[2019-10-26] MEDS ORDERED: NORMAL SALINE 1000 ML 2,000 ML IV ONE (17:45)
--- NOTE | 2019-10-26 17:45 | ER Document Report ---
ED Medical Screen (RME) - General Chief Complaint: High Blood Pressure Stated Complaint: POSSIBLE HIGH BLOOD SUGAR Time Seen by Provider: 10/26/19 17:34 Primary Care Provider: J[facility] BRYAN [Primary Care Provider] - Follow up as needed TRAVEL OUTSIDE OF THE [place].S. IN LAST 30 DAYS: No - HPI Context: Patient is a 39-year-old female, recently diagnosed with diabetes who presents to the emergency department with high blood sugar readings. Patient states that yesterday her blood sugars were 400 and higher. Patient is currently on metformin. Patient states that she feels lethargic. Exam: Patient falling asleep during exam. Morbidly obese. I have greeted and performed a rapid initial assessment of this patient. A comprehensive ED assessment and evaluation of the patient, analysis of test results and completion of medical decision making process will be conducted by an additional ED providers. - Related Data Allergies/Adverse Reactions: cigarette smoke Allergy (Verified 10/26/19 17:34) Past Medical History Renal/ Medical History: Denies: Hx Peritoneal Dialysis Past Surgical History: Reports: Hx Cholecystectomy - Immunizations Immunizations up to date: Yes Physical Exam - Vital signs Vitals: Temp Pulse Resp BP Pulse Ox 98.5 F 110 H 20 137/100 H 96 10/26/19 16:44 10/26/19 16:44 10/26/19 16:44 10/26/19 16:44 10/26/19 16:44 Course - Vital Signs Vital signs: Temp Pulse Resp BP Pulse Ox 98.5 F 110 H 20 137/100 H 96 10/26/19 16:44 10/26/19 16:44 10/26/19 16:44 10/26/19 16:44 10/26/19 16:44 Doctor's Discharge - Discharge Referrals: JOVANNY BRYAN [Primary Care Provider] - Follow up as needed
[2019-10-26 18:25] LABS: ABSOLUTE BASOPHILS # (AUTO) 0.1 10^3/uL (0.0-0.2); ABSOLUTE EOSINOPHILS # (AUTO) 0.4 10^3/uL (0.0-0.6); ABSOLUTE LYMPHOCYTES (AUTO) 2.8 10^3/uL (0.5-4.7); ABSOLUTE MONOCYTES (AUTO) 0.7 10^3/uL (0.1-1.4); ABSOLUTE NEUT (AUTO) 7.6 10^3/uL (1.7-8.2); BASOPHILS % (AUTO) 0.6 % (0-2); EOSINOPHILS % (AUTO) 3.7 % (0-6); HEMATOCRIT 44.9 % (36.0-47.0); HEMOGLOBIN 14.4 g/dL (12.0-15.5); LYMPHOCYTES % (AUTO) 24.2 % (13-45); MEAN CORPUSCULAR HEMOGLOBIN 28.1 pg (27.0-33.4); MEAN CORPUSCULAR VOLUME 88 fl (80-97); MONOCYTES % (AUTO) 6.3 % (3-13); PLATELET COUNT 522 10^3/uL (150-450); RED BLOOD COUNT 5.12 10^6/uL (3.72-5.28); SEGMENTED NEUTROPHILS % (AUTO) 65.2 % (42-78); TOTAL CELLS COUNTED % (AUTO) 100 %; WHITE BLOOD COUNT 11.6 10^3/uL (4.0-10.5)
--- NOTE | 2019-10-26 18:34 | EKG REPORT ---
SEVERITY:- OTHERWISE NORMAL ECG - SINUS TACHYCARDIA : Confirmed by: Jayant Matute MD 26-Oct-2019 18:33:50
[2019-10-26 18:44] LABS: ALBUMIN 3.8 g/dL (3.5-5.0); ALKALINE PHOSPHATASE 117 U/L (38-126); ANION GAP 11 (5-19); ASPARTATE AMINO TRANSFERASE 34 U/L (14-36); BILIRUBIN,TOTAL 0.4 mg/dL (0.2-1.3); BLOOD UREA NITROGEN 19 mg/dL (7-20); CALCIUM 9.7 mg/dL (8.4-10.2); CARBON DIOXIDE 27 mmol/L (22-30); CHLORIDE 95 mmol/L (98-107); POTASSIUM 5.6 mmol/L (3.6-5.0); TOTAL PROTEIN 7.5 g/dL (6.3-8.2)
[2019-10-26] MEDS ORDERED: INSULIN REG, HUMAN 100 UNIT/ML 3 ML VIAL (PYX) IV ONE (18:49)
[2019-10-26 18:53] LABS: GLUCOSE 479 mg/dL (75-110)
[2019-10-26] MEDS ORDERED: INSULIN REG, HUMAN 100 UNIT/ML 3 ML VIAL (PYX) SUBCUT ONE (21:57)
[2019-10-26] MEDS ORDERED: NORMAL SALINE 1000 ML 1,000 ML IV ONE (21:57)
--- NOTE | 2019-10-26 22:13 | ER Document Report ---
ED General - General Chief Complaint: High Blood Sugar Stated Complaint: POSSIBLE HIGH BLOOD SUGAR Time Seen by Provider: 10/26/19 17:34 Primary Care Provider: [facility] [Provider Group] - Follow up in 1 week [facility] [NO LOCAL MD] - Follow up in 1 week Notes: Patient is a 39-year-old female with a history of morbid obesity and type 2 diabetes (recently diagnosed 2 months ago) that comes emergency department chief complaint of high blood sugar with reading this morning of "HI". She states she also started getting nauseated and started feeling slightly lightheaded and weak. She denies vomiting, fever, shortness of breath, chest pain, passing out. She is on 500 mg of metformin twice a day. She is on no other medications reportedly. She denies any other medical history or diagnosed medical problems. She states she is following with the [facility] and just recently got her Accu-Chek this week. TRAVEL OUTSIDE OF THE [place] IN LAST 30 DAYS: No - Related Data Allergies/Adverse Reactions: cigarette smoke Allergy (Verified 10/26/19 17:34) Home Medications: metformin Past Medical History - General Information source: Patient - Social History Smoking Status: Never Smoker Chew tobacco use (# tins/day): No Frequency of alcohol use: None Drug Abuse: None Lives with: Family Family History: Reviewed & Not Pertinent Patient has homicidal ideation: No Endocrine Medical History: Reports: Hx Diabetes Mellitus Type 2 Renal/ Medical History: Denies: Hx Peritoneal Dialysis Past Surgical History: Reports: Hx Cholecystectomy - Immunizations Immunizations up to date: Yes Review of Systems - Review of Systems Constitutional: See HPI EENT: No symptoms reported Cardiovascular: No symptoms reported Respiratory: No symptoms reported Gastrointestinal: See HPI Genitourinary: No symptoms reported Female Genitourinary: No symptoms reported Musculoskeletal: No symptoms reported Skin: No symptoms reported Hematologic/Lymphatic: No symptoms reported Neurological/Psychological: No symptoms reported Physical Exam - Vital signs Vitals: Temp Pulse Resp BP Pulse Ox 98.5 F 110 H 20 137/100 H 96 10/26/19 16:44 10/26/19 16:44 10/26/19 16:44 10/26/19 16:44 10/26/19 16:44 - Notes Notes: GENERAL: Alert, interacts well. No acute distress. HEAD: Normocephalic, atraumatic. EYES: Pupils equal, round, and reactive to light. Extraocular movements intact. ENT: Oral mucosa dry, tongue midline. Oropharynx unremarkable. Airway patent. NECK: Full range of motion. Supple. Trachea midline. No lymphadenopathy. LUNGS: Clear to auscultation bilaterally, no wheezes, rales, or rhonchi. No respiratory distress. Non-tender chest wall. HEART: borderline tachycardic, normal rhythm, no murmur ABDOMEN: Soft, non-tender. Non-distended. Bowel sounds present in all 4 quadrants. GENITOURINARY: Deferred EXTREMITIES: Moves all 4 extremities spontaneously. No edema, normal radial and dorsalis pedis pulses bilaterally. No cyanosis. BACK: no cervical, thoracic, lumbar midline tenderness. No saddle anesthesia, normal distal neurovascular exam. Moves all extremities in full range of motion. NEUROLOGICAL: Alert and oriented x3. Normal speech. Cranial nerves II through XII grossly intact. Strength 5/5 in all extremities. PSYCH: Normal affect, normal mood. SKIN: Warm, dry, normal turgor. No rashes or lesions noted. Course - Re-evaluation Re-evalutation: Patient borderline tachycardic on exam but she is well-appearing. CBC unremarkable, chemistry shows significant hyperglycemia but anion gap and bicarbonate are normal. Urine shows blood, most likely contamination from menstrual cycle. Potassium is slightly elevated but we will be treating patient with IV fluids and insulin. Initially blood glucose started to drop but then suddenly increased. On discussion with patient she had just eaten ordered food before coming back to the room. I suspect this is the cause. Patient was given additional insulin and fluids and this did downtrend. I discussed with patient eating recommendations, great importance of getting her blood glucose under control, she is no longer having diarrhea from metformin and has become accustomed to this, she will have her metformin increase, she will be placed on glipizide, I did discuss case with Dr. Andrade and recommendations. Discussed primary care follow-up and importance of this, discussed return precautions. Patient states understanding and agreement. Stable and well-appearing at time of discharge. - Vital Signs Vital signs: Temp Pulse Resp BP Pulse Ox 98.2 F 91 14 127/79 H 96 10/27/19 05:55 10/27/19 05:55 10/27/19 05:55 06/18/20 05:55 10/27/19 05:55 - Laboratory Result Diagrams: 10/26/19 18:00 10/26/19 18:00 Laboratory results interpreted by me: 10/26/19 10/26/19 10/26/19 17:51 18:00 18:00 WBC 11.6 H RDW 16.0 H Plt Count 522 H Sodium 132.5 L Potassium 5.6 H Chloride 95 L Glucose 479 H* POC Glucose 465 H* Urine Protein Urine Glucose (UA) Urine Ketones Urine Blood Urine Ascorbic Acid 10/26/19 10/26/19 10/26/19 22:00 22:04 23:35 WBC RDW Plt Count Sodium Potassium Chloride Glucose POC Glucose 394 H 517 H* Urine Protein 30 H Urine Glucose (UA) >=500 H Urine Ketones TRACE H Urine Blood LARGE H Urine Ascorbic Acid 20 H 10/27/19 10/27/19 10/27/19 00:51 01:54 03:27 WBC RDW Plt Count Sodium Potassium Chloride Glucose POC Glucose 482 H* 430 H* 355 H Urine Protein Urine Glucose (UA) Urine Ketones Urine Blood Urine Ascorbic Acid Discharge - Discharge Clinical Impression: Uncontrolled type II diabetes mellitus Qualifiers: Glycemic state: with hyperglycemia Qualified Code(s): E11.65 - Type 2 diabetes mellitus with hyperglycemia Condition: Stable Disposition: HOME, SELF-CARE Additional Instructions: Your diabetes is not controlled. We are increasing your metformin and we are adding a new medication for this, however it is very important that he follow-up with primary care to have this managed additionally because he will require additional adjustments for treatment. If you do not get your blood sugar under control this will cause severe damage to your body over time. Avoid carbohydrates/sugary foods. Drink plenty of water. Return if you worsen including vomiting, passing out, fever, or any other concerning or worsening symptoms. Prescriptions: Glipizide [Glipizide Xl] 5 mg PO DAILY #30 tab.er.24 Metformin HCl 1,000 mg PO BID #60 tablet [facility] [NO LOCAL MD] - Follow up in 1 week [facility] [Provider Group] - Follow up in 1 week
[2019-10-26 22:25] LABS: APPEARANCE,URINE SLIGHTLY-CLOUDY; BILIRUBIN,URINE NEGATIVE (NEGATIVE); COLOR,URINE YELLOW; GLUCOSE, URINE >=500 mg/dL (NEGATIVE); KETONES,URINE TRACE mg/dL (NEGATIVE); LEUKOCYTE ESTERASE,URINE NEGATIVE (NEGATIVE); NITRITE,URINE NEGATIVE (NEGATIVE); PROTEIN,URINE 30 mg/dL (NEGATIVE); URINE SPECIFIC GRAVITY 1.033; UROBILINOGEN,URINE NEGATIVE mg/dL (<2.0)
[2019-10-27] MEDS ORDERED: INSULIN REG, HUMAN 100 UNIT/ML 3 ML VIAL (PYX) SUBCUT ONE (02:02)
[2019-10-27] MEDS ORDERED: NORMAL SALINE 1000 ML 1,000 ML IV ONE (02:02)
[2019-10-27 06:00] VITALS: BP 127/79
== END 2019-10-27 06:00 | disposition home or self-care (01) ==
LOC: ER 16:36
DX: E11.65 Type 2 diabetes mellitus with hyperglycemia (principal); E66.01 Morbid (severe) obesity due to excess calories; R42 Dizziness and giddiness; R53.1 Weakness; Z79.84 Long term (current) use of oral hypoglycemic drugs
CPT/HCPCS: 93005; 99283; 96372; 96360; 96361; 36415; 82962; 85025; 80053; 81001; 93010; J1815 ×2; J7030 ×2

== ENCOUNTER 2020-05-16 13:51 | Emergency (ER) | payer SELFPAY ==
--- NOTE | 2020-05-16 17:33 | RADIOLOGY REPORT (SQ) ---
EXAM DESCRIPTION: CHEST SINGLE VIEW IMAGES COMPLETED DATE/TIME: 05/16/2020 5:17 pm REASON FOR STUDY: chest pain COMPARISON: 04/21/2020 EXAM PARAMETERS: NUMBER OF VIEWS: One view. TECHNIQUE: Single frontal radiographic view of the chest acquired. RADIATION DOSE: NA LIMITATIONS: None. FINDINGS: LUNGS AND PLEURA: No opacities, masses or pneumothorax. No pleural effusion. MEDIASTINUM AND HILAR STRUCTURES: No masses. Contour normal. HEART AND VASCULAR STRUCTURES: Heart normal in size. Normal vasculature. BONES: No acute findings. HARDWARE: None in the chest. OTHER: No other significant finding. IMPRESSION: NO ACUTE RADIOGRAPHIC FINDING IN THE CHEST. TECHNICAL DOCUMENTATION: JOB ID: [id number] 2010 [employer]- All Rights Reserved Reading location - IP/workstation name: [email or web address]
[2020-05-16 17:45] LABS: ABSOLUTE BASOPHILS # (AUTO) 0.2 10^3/uL (0.0-0.2); ABSOLUTE EOSINOPHILS # (AUTO) 0.4 10^3/uL (0.0-0.6); ABSOLUTE LYMPHOCYTES (AUTO) 3.3 10^3/uL (0.5-4.7); ABSOLUTE MONOCYTES (AUTO) 0.8 10^3/uL (0.1-1.4); ABSOLUTE NEUT (AUTO) 8.9 10^3/uL (1.7-8.2); BASOPHILS % (AUTO) 1.2 % (0-2); EOSINOPHILS % (AUTO) 3.1 % (0-6); HEMATOCRIT 34.8 % (36.0-47.0); HEMOGLOBIN 11.3 g/dL (12.0-15.5); LYMPHOCYTES % (AUTO) 24.1 % (13-45); MEAN CORPUSCULAR HEMOGLOBIN 26.7 pg (27.0-33.4); MEAN CORPUSCULAR HGB CONC 32.5 g/dL (32.0-36.0); MEAN CORPUSCULAR VOLUME 82 fl (80-97); MONOCYTES % (AUTO) 6.2 % (3-13); PLATELET COUNT 553 10^3/uL (150-450); RED BLOOD COUNT 4.24 10^6/uL (3.72-5.28); RED CELL DISTRIBUTION WIDTH 15.7 % (11.5-14.0); SEGMENTED NEUTROPHILS % (AUTO) 65.4 % (42-78); TOTAL CELLS COUNTED % (AUTO) 100 %; WHITE BLOOD COUNT 13.5 10^3/uL (4.0-10.5)
[2020-05-16 18:00] LABS: ALBUMIN 3.4 g/dL (3.5-5.0); ALKALINE PHOSPHATASE 65 U/L (38-126); ANION GAP 5 (5-19); ASPARTATE AMINO TRANSFERASE 20 U/L (14-36); BILIRUBIN,DIRECT 0.3 mg/dL (0.0-0.4); BILIRUBIN,TOTAL 0.3 mg/dL (0.2-1.3); BLOOD UREA NITROGEN 18 mg/dL (7-20); CALCIUM 8.8 mg/dL (8.4-10.2); CARBON DIOXIDE 29 mmol/L (22-30); CHLORIDE 103 mmol/L (98-107); GLUCOSE 239 mg/dL (75-110); POTASSIUM 4.5 mmol/L (3.6-5.0); TOTAL PROTEIN 6.8 g/dL (6.3-8.2)
--- NOTE | 2020-05-16 19:10 | ER Document Report ---
ED General - General Chief Complaint: Cough Stated Complaint: SHORTNESS OF BREATH/COUGH Time Seen by Provider: 05/16/20 16:04 Primary Care Provider: [facility] [Provider Group] - Follow up as needed [facility] - Follow up as needed TRAVEL OUTSIDE OF THE [place] IN LAST 30 DAYS: No - HPI Notes: Patient is a 39-year-old female with a history of diabetes and morbid obesity who presents with chest pain that began 2 weeks ago. Patient describes the chest pain as diffuse and squeezing in sensation. She also reports a productive cough, shortness of breath, dizziness, decreased appetite, and vomiting. She denies fever, nausea, abdominal pain, and diarrhea. Patient was seen in the ED on 04/20/2020 and was diagnosed with pneumonia and a lung tumor. Patient was placed on Augmentin which she completed. [facility]. Patient states she tried to get an appointment concerning her chest pain but has been unable to be seen. Patient denies any sick contacts or potential COVID exposures. Patient denies any family cardiac hx. She denies hormone use, and tobacco use. - Related Data Allergies/Adverse Reactions: cigarette smoke Allergy (Verified 10/26/19 17:34) Past Medical History - General Information source: Patient - Social History Smoking Status: Never Smoker Frequency of alcohol use: None Drug Abuse: None Family History: Reviewed & Not Pertinent Endocrine Medical History: Reports: Hx Diabetes Mellitus Type 2 Renal/ Medical History: Denies: Hx Peritoneal Dialysis Past Surgical History: Reports: Hx Cholecystectomy - Immunizations Immunizations up to date: Yes Review of Systems - Review of Systems Constitutional: No symptoms reported EENT: No symptoms reported Cardiovascular: See HPI Respiratory: See HPI Gastrointestinal: See HPI Genitourinary: No symptoms reported Female Genitourinary: No symptoms reported Musculoskeletal: No symptoms reported Skin: No symptoms reported Hematologic/Lymphatic: No symptoms reported Neurological/Psychological: No symptoms reported Physical Exam - Vital signs Vitals: Temp Pulse Resp BP Pulse Ox 98.5 F 97 20 151/105 H 98 05/16/20 14:19 05/16/20 14:19 05/16/20 14:19 05/16/20 14:19 05/16/20 14:19 - Notes Notes: PHYSICAL EXAMINATION: VITALS: Vitals reviewed and within normal limits. GENERAL: Well-appearing, morbidly obese female in no acute distress. HEAD: Atraumatic, normocephalic. EYES: Pupils equal, round, and reactive to light, extraocular movements intact, sclera anicteric, conjunctiva are normal. ENT: Nares patent. Moist mucous membranes. Oropharynx clear without exudates. NECK: Normal range of motion, supple without lymphadenopathy. LUNGS: Breath sounds clear to auscultation bilaterally and equal. No wheezes, rales, or rhonchi. HEART: Regular, rate, and rhythm without murmurs. CHEST WALL: Diffuse chest wall tenderness. No visible or palpable deformity. ABDOMEN: Soft, nontender, normoactive bowel sounds. No guarding, no rebound. No masses appreciated. EXTREMITIES: Normal range of motion, no pitting or edema. No cyanosis. NEUROLOGICAL: No focal neurological deficits. Moves all extremities spontaneously and on command. PSYCH: Anxious mood, normal affect. SKIN: Warm, Dry, normal turgor, no rashes or lesions noted. Course - Re-evaluation Re-evalutation: Presentation of chest pain in an otherwise well appearing patient. Low clinical suspicion for ACS given clinical history, exam, EKG without ST elevations or depressions, and negative initial troponin. HEART score less than or equal to 3. PE also seems unlikely given clinical history, absence of tachycardia or dyspnea. Patient is PERC criteria negative. CXR without evidence of pneumothorax or pneumonia. No widened mediastinum. Aortic dissection also seems unlikely given history, symmetric pulses, CXR, and vitals. HEART Score: 1 Chest pain in a patient without evidence of cardiac or other serious etiology on workup today. I discussed with patient that, based on their age, risk factors and emergency department testing today, the likelihood that their symptoms are related to a heart attack is very low (estimated risk of heart attack or over the next 30 days of less than 1%). Chest wall appears to be chest wall in nature and IM toradol given. Patient advised to take NSAIDs as needed for pain. The patient demonstrates decision making capacity and has verbalized an understanding of these risks to me. Based on this, the patient has chosen to follow-up as an outpatient. Usual chest pain return precautions reviewed. The patient states understanding and agreement with this plan. - Vital Signs Vital signs: Temp Pulse Resp BP Pulse Ox 98.5 F 97 20 151/105 H 98 05/16/20 14:19 05/16/20 14:19 05/16/20 14:19 05/16/20 14:19 05/16/20 14:19 - Laboratory Results Result Diagrams: 05/16/20 17:26 05/16/20 17:26 Laboratory Results Interpreted: 05/16/20 05/16/20 17:26 17:26 WBC 13.5 H Hgb 11.3 L Hct 34.8 L MCH 26.7 L RDW 15.7 H Plt Count 553 H Absolute Neuts (auto) 8.9 H Sodium 136.7 L Glucose 239 H Albumin 3.4 L Critical Laboratory Results Reviewed: No Critical Results - Radiology Results Radiology Results Interpreted: Chest X-Ray 05/16/20 16:42 IMPRESSION: NO ACUTE RADIOGRAPHIC FINDING IN THE CHEST. Critical Radiology Results Reviewed: No Critical Results - EKG Interpretation by Me Additional EKG results interpreted by me: Sinus rhythm with a rate of 98. QTc 465. Normal axis. No T wave inversions or ST segment changes in consecutive leads. EKG difficult to read due to artifact. Discharge - Discharge Clinical Impression: Chest wall pain, Cough Obesity Qualifiers: Obesity type: unspecified obesity type Obesity classification: adult class 3 (BMI >= 40) Serious obesity comorbidity presence: with serious comorbidity Body mass index: BMI 60.0-69.9 Qualified Code(s): E66.01 - Morbid (severe) obesity due to excess calories Condition: Stable Disposition: HOME, SELF-CARE Instructions: COVID-19 Guidance for Persons Under Investigation Additional Instructions: You were seen today for chest pain. The exact cause of your pain is unclear. However, based on your cardiac enzyme testing, chest x-ray, and EKG it does not appear that it is from an immediately life-threatening cause at this time. Although your testing here is normal is critical that you follow-up with your primary care physician for continued evaluation of this chest pain and possible stress testing. I recommended you see your physician within the next 24-48 h ours to be evaluated for consideration of a stress test. Please return to emergency department immediately if you have worsening of your chest pain, shortness of breath, vomiting, become unable to exert yourself due to pain or difficulty breathing, you pass out, or have any pain that radiates into your arms, jaw, or back. Please also return if you have any additional symptoms that are concerning to you. Chest Wall Pain Your chest pain has been diagnosed as coming from the chest wall. This is often caused by straining the muscles or joints in the chest during physical activity, direct trauma, coughing, or vigorous vomiting. Persons with arthritis are especially prone to this type of pain, due to inflammation of the cartilage joints near the breast bone. Occasionally, no cause can be found. Rest from strenuous physical activity. This kind of chest pain is usually made worse by movement of the chest. Depending on the symptoms, we may prescribe medicine for pain, muscle relaxation, and antiinflammatory effects. If the pain is new, and seems to be due to muscle strain, cold packs can help. Otherwise, apply gentle warmth to the painful area for 15 minutes every hour or two. You should contact the doctor immediately if things change. Further evaluation is needed if you develop a fever or cough, if the nature of the pain changes, or if you become short of breath. Referrals: [facility] [Primary Care Provider] - Follow up as needed [facility] [Provider Group] - Follow up as needed
[2020-05-16 19:48] LABS: A TYPE INFLUENZA AG NEGATIVE (NEGATIVE); B INFLUENZA AG NEGATIVE (NEGATIVE)
[2020-05-16] MEDS ORDERED: KETOROLAC TROMETHAMINE 60 MG/2 ML SDV IM ONE (19:52)
[2020-05-16 20:36] VITALS: BP 142/83
--- NOTE | 2020-05-16 23:39 | EKG REPORT ---
SEVERITY:- ABNORMAL ECG - SINUS RHYTHM : Confirmed by: Albert Zepeda 16-May-2020 23:38:25
== END 2020-05-16 20:35 | disposition home or self-care (01) ==
LOC: ER 13:51
DX: R07.89 Other chest pain (principal); E66.01 Morbid (severe) obesity due to excess calories; Z68.44 Body mass index [BMI] 60.0-69.9, adult; R05 Cough; R06.02 Shortness of breath; R42 Dizziness and giddiness; R63.0 Anorexia; R11.11 Vomiting without nausea; Z91.048 Other nonmedicinal substance allergy status; Z20.822 Contact with and (suspected) exposure to COVID-19
CPT/HCPCS: 93005; 99285; 96372; 36415; 85025; 87635; 80053; 84484; 87804; 71045; 93010; J1885; C9803